=== PATIENT | female | born 1985 | race Two or more races ===

== ENCOUNTER 2016-05-24 20:08 | Emergency (ER) | payer MEDICAID, OTHER ==
[~2016-05-24] VITALS: Ht 157.5 cm; Wt 74.8 kg
[2016-05-24] MEDS ORDERED: Tylenol #3 tab (300mg/30mg) PO ONE (21:00)
[2016-05-24] MEDS ORDERED: IBUPROFEN600 MG ORAL (21:58)
[2016-05-24] MEDS ORDERED: ACETAMINOPHEN-1 EAC1 ORAL (21:58)
[2016-05-24 22:22] VITALS: BP 148/89
[2016-05-24 22:23] VITALS: BP 148/89
--- NOTE | 2016-05-25 10:26 | Diagnostic Imaging Report ---
Indications: Left hand injury, pain Technique: 3 views left hand. Findings: Comparison: None No fracture, dislocation, joint space widening , surrounding soft tissue swelling/foreign body/other abnormality, or other acute changes are identified. IMPRESSION: No evidence of acute injury to left hand.
--- NOTE | 2016-05-25 12:55 | Diagnostic Imaging Report ---
Indications: Left knee injury, pain Technique: 3 views left knee. Findings: Comparison: None No fracture, dislocation, joint space widening or effusion , surrounding soft tissue swelling/foreign body/other abnormality, or other acute changes are identified. IMPRESSION: No evidence of acute injury to left knee.
--- NOTE | 2016-05-25 20:12 | Emergency Room Report ---
History of Present Illness General Chief Complaint: Multiple Trauma/Fall Source: Patient Present Illness HPI 31-year-old female presents to ED complaining of left hand pain and left knee pain. States that yesterday she was snowboarding and tripped and fell, twisting her left knee and landing on her left hand. Notes pain to the left knee and left hand. 10/30. Sharp. Nonradiating. No other aggravating relieving factors. Denies any other injuries. Notes pain but is able to walk. Denies any other associated symptoms Allergies: Coded Allergies: SULFAMETHOXAZOLE (Verified Allergy, Unknown, 05/24/16) TRIMETHOPRIM (Verified Allergy, Unknown, 05/24/16) Patient History Past Medical History: none Past Surgical History: none Pertinent Family History: none Social History: Denies: alcohol use, drug use, smoking Last Menstrual Period: 04/21/16 Now: No Reviewed Nursing Documentation: PMH: Agreed, PSxH: Agreed Nursing Documentation-PMH Past Medical History: No History, Except For Review of Systems All Other Systems: negative except mentioned in HPI Physical Exam Vital Signs Date Time Temp Pulse Resp B/P Pulse Ox O2 Delivery O2 Flow Rate FiO2 05/24/16 20:42 98.2 72 16 145/93 100 Room Air Sp02 EP Interpretation: reviewed, normal General Appearance: no apparent distress, alert, GCS 15, non-toxic Head: normocephalic Eyes: bilateral eye PERRL, bilateral eye normal inspection ENT: normal ENT inspection Neck: normal inspection Respiratory: lungs clear, normal breath sounds, speaking full sentences Cardiovascular #1: regular rate, rhythm, no edema Gastrointestinal: normal bowel sounds, non tender, soft, non-distended, no guarding, no rebound Rectal: deferred Genitourinary: no CVA tenderness Musculoskeletal: normal range of motion, tender - L knee, L hand Neurologic: alert, oriented x3, responsive, motor strength/tone normal, sensory intact, speech normal Psychiatric: normal inspection Skin: normal inspection Lymphatic: normal inspection Procedures Splinting Splinting : Pre-Made Type: VIKKI wrap - L hand, L knee Medical Decision Making Diagnostic Impression: Primary Impression: Hand contusion Qualified Codes: S60.222A - Contusion of left hand, initial encounter Additional Impression: Knee sprain Qualified Codes: S83.92XA - Sprain of unspecified site of left knee, initial encounter ER Course Hospital Course 31-year-old F presents to ED complaining of L hand and L knee pain s/p trip and fall Differential diagnoses include: Fracture, dislocation, sprain, contusion Clinical course Patient placed on stretcher. After initial history and physical, I ordered pain medications and Xrays of L hand/knee Xrays prelim read shows no acute fracture/dislocation. placed in vikki wrap Diagnosis - knee sprain, hand contusion Stable and discharged to home with prescription for Tylenol #3. apply ice, keep elevated. weight bear as tolerated. Followup with PMD. Return to ED if symptoms recur or worsen Other X-Ray Diagnostic Results Other X-Ray Diagnostic Results : X-Ray Ordered: left knee, left hand EP Interpretation: Yes Findings: no fractures, no dislocation, no soft tissue swelling Number of Views: 3 Other Impression Left knee-No fracture, no dislocation, no soft tissue swelling Left hand-No fracture, no dislocation, no soft tissue swelling Last Vital Signs Date Time Temp Pulse Resp B/P Pulse Ox O2 Delivery O2 Flow Rate FiO2 05/24/16 22:23 98.1 77 15 148/89 100 Room Air Status: improved Disposition: HOME, SELF-CARE Condition: Stable Scripts Ibuprofen* (MOTRIN*) 600 Mg Tablet 600 MG ORAL Q8H Y for For Pain, #30 TAB 0 Refills Prov: VICTOR MANUEL ANN M.D. 05/24/16 Acetaminophen With Codeine (T#3) (TYLENOL #3 TAB*) Y Tab 1 TAB ORAL Q8H Y for For Pain, #20 TAB Prov: VICTOR MANUEL ANN M.D. 05/24/16 Referrals: NOT CHOSEN IPA/,REFERRING Departure Forms: Return to Work Return to Work Date: May 26, 2016 Work Restrictions: Desk Work Only Patient Instructions: Knee Sprain, [id number] VICTOR MANUEL ANN M.D. May 25, 2016 20:12
== END 2016-05-24 22:25 | disposition home or self-care (01) ==
LOC: EMR 21:01
DX: S60.222A Contusion of left hand, initial encounter (principal); S83.92XA Sprain of unspecified site of left knee, initial encounter; W19.XXXA Unspecified fall, initial encounter; Y93.23 Activity, snow (alpine) (downhill) skiing, snowboarding, sledding, tobogganing and snow tubing; Y92.9 Unspecified place or not applicable; Z88.2 Allergy status to sulfonamides
CPT/HCPCS: 99284